=== PATIENT | male | born 1970 | race Caucasian/White ===

== ENCOUNTER 2017-11-05 18:25 | Emergency (ER) | payer MEDICAID ==
[~2017-11-05] VITALS: Ht 172.7 cm; Wt 64.0 kg
[2017-11-05 19:26] LABS: BASOPHILS % 1.1 % (0.0-2.0); EOSINOPHILS % 4.6 % (0.0-5.0); HEMATOCRIT. 38.7 % (42.0-52.0); LYMPHOCYTES % 40.5 % (20.0-50.0); MEAN CORPUSCULAR HEMOGLOBIN 31.8 pg (28.0-32.0); MEAN CORPUSCULAR VOLUME 94.5 fL (80.0-94.0); MEAN PLATELET VOLUME 7.1 fl (7.4-10.4); MONOCYTES % 10.6 % (2.0-8.0); NEUTROPHILS % 43.2 % (40.0-76.0); PLATELET 334 x1000/uL (130-400); RED BLOOD CELL COUNT 4.09 mill/uL (4.7-6.1)
[2017-11-05 20:00] LABS: CHLORIDE 106 mEq/L (98-107)
[2017-11-05 20:04] LABS: ETHANOL BLOOD < 10 mg/dL
[2017-11-05 20:43] LABS: CLARITY URINE CLEAR (CLEAR); COLOR URINE YELLOW (YELLOW); KETONES URINE NEGATIVE (NEGATIVE); LEUKOCYTE ESTERASE URINE NEGATIVE (NEGATIVE); NITRITE URINE NEGATIVE (NEGATIVE); OCCULT BLOOD URINE NEGATIVE (NEGATIVE); PROTEIN URINE TRACE (NEGATIVE); SPECIFIC GRAVITY URINE 1.034 (1.005-1.030)
[2017-11-05 20:53] LABS: *AMPHETAMINES SCREEN URINE PRESUMTIVE POSITIVE (NEGATIVE); *BARBITURATES SCREEN URINE NEGATIVE (NEGATIVE)
[2017-11-05 20:54] LABS: *BENZODIAZEPINES SCREEN URINE NEGATIVE (NEGATIVE); *COCAINE SCREEN URINE NEGATIVE (NEGATIVE); METHADONE URINE SCREEN NEGATIVE (NEGATIVE); OPIATES URINE SCREEN NEGATIVE (NEGATIVE); PHENCYCLIDINE URINE SCREEN NEGATIVE (NEGATIVE)
[2017-11-05 20:55] LABS: CANNABINOID URINE SCREEN PRESUMTIVE POSITIVE (NEGATIVE)
[2017-11-05] MEDS ORDERED: DIVALPROEX SODIUM 250MG ER TABLET PO ONE (22:00)
[2017-11-05] MEDS ORDERED: QUETIAPINE FUMARATE 100MG TABLET PO SCH (23:30)
[2017-11-05] MEDS ORDERED: DIVALPROEX SODIUM 500MG ER TABLET PO NR (23:45)
[2017-11-06 14:04] VITALS: BP 106/68
== END 2017-11-06 15:54 | disposition home or self-care (01) ==
LOC: ER 18:25
DX: R45.851 Suicidal ideations (principal); F19.10 Other psychoactive substance abuse, uncomplicated; F20.9 Schizophrenia, unspecified; F43.10 Post-traumatic stress disorder, unspecified; F17.200 Nicotine dependence, unspecified, uncomplicated; F31.9 Bipolar disorder, unspecified
CPT/HCPCS: 36415; 80053; 80305; 80307; 80329; 81003; 85025; 99284; G0482; J7030; Z7610